=== PATIENT | female | born 1955 | race Caucasian/White ===

== ENCOUNTER 2020-11-28 17:07 | Emergency (ER) | payer MEDICARE, MEDICAID, SELFPAY ==
--- NOTE | ~2020-11-28 | US_ITS ---
EXAMINATION: US VENOUS ULTRASOUND WITH DOPPLER LOWER EXTREMITY, LEFT CLINICAL INFORMATION: Leg swelling. History of DVT. COMPARISON: None TECHNIQUE: Ultrasound of the deep veins is performed from the hip to the calf with compression sonography and color and pulse Doppler assessment. Spectral analysis with color-flow imaging is performed. FINDINGS: There is normal venous compression and respiratory variation and augmented flow. The visualized common femoral vein, superficial femoral vein, profunda femoral vein, popliteal vein, and the trifurcation region shows no evidence of deep venous thrombosis. There is no significant popliteal fossa cyst. If the patient's symptoms persist, followup ultrasound in 5 days 7 days might be of value to exclude proximal propagation from a non-visualized calf vein. US/US venous duplex LE IMPRESSION: No DVT demonstrated in the left lower extremity.
[2020-11-28 17:10] VITALS: BP 175/69; PULSE 91; RESP 18; TEMP 36.7; O2SAT 97; BMI 29.1
--- NOTE | 2020-11-28 18:14 | ED.EXTPRO ---
HPI - Extremity Problem General Chief complaint: Extremity Problem Stated complaint: R/O Dvt Time Seen by Provider: 11/28/20 18:14 Source: patient Mode of arrival: ambulatory Limitations: no limitations History of Present Illness HPI Narrative: 62-year-old female who reports history of DVT she is currently on Eliquis she reports she sprained her left ankle 4 days ago she subsequently got evaluated at [facility] where she had an x-ray was told this was unremarkable. States her ankle is hurting a little bit and got better afterwards noticed some slight swelling that has not worsened or improved. States she is concerned she may have a DVT. States swelling just above the ankle. States she has had similar symptoms in the past with DVT. Again she is currently on Eliquis and states she is compliant. Otherwise denies any chest pain, shortness of breath. No headache. No other injury. Ambulatory steady gait. MD Complaint: extremity swelling Pain Consistency: constant Location: left Quality: aching Radiation: none Relieving factors: nothing Exacerbating factors: nothing Associated symptoms: denies other symptoms Related Data Allergies Allergy/AdvReac Type Severity Reaction Status Date / Time No Known Allergies Allergy Unverified 02/25/20 17:02 Review of Systems Review of Systems: Constitutional: No Weight loss, No Fever, No Chills, No Night Sweats, No Fatigue, No Malaise ENT/Mouth: No Hearing loss, No Ear Pain, No Nasal Congestion, No Sinus Pain, No Hoarseness, No sore throat, No Rhinorrhea, No Swallowing Difficulty Eyes: No Eye Pain, No Swelling, No Redness, No Foreign Body, No Discharge, No Vision Changes Cardiovascular: No Chest Pain, No SOB, No Dyspnea on Exertion, No Orthopnea, No Edema, No Palpitations Respiratory: No Cough, No Sputum, No Wheezing, No Smoke Exposure, No Dyspnea Gastrointestinal: No Nausea, No Vomiting, No Diarrhea, No Constipation, No abdominal Pain, No Hematochezia, No Melena Genitourinary: no irregular bleeding, No Dysuria, No Urinary Frequency, No Hematuria, No Urinary Incontinence, No Urgency, No Flank Pain, No Urinary Flow Changes, No Hesitancy Musculoskeletal: No joint pain, No Myalgias, left lower leg swelling just below the amaro and to ankle as noted per HPI. Skin: No Skin Lesions, No rash Neuro: No Weakness, No Numbness, No Paresthesias, No Loss of Consciousness, No Dizziness, No Headache Psych: No Social Issues Heme/Lymph: No Bruising, No Bleeding,No Lymphadenopathy Endocrine: No Polyuria, No Polydipsia, No Temperature Intolerance Yes all other systems are reviewed and are negative [facility] Past Medical History Medical History DVT (deep venous thrombosis) Surgical History History of appendectomy Social History Social History Patient Tobacco Use Status: Never used Tobacco Use of substances other than those prescribed or required for medical reasons: No Advance Directives: No Advance Directives Information Provided: No Physical Exam Vital Signs: Vital Signs: Last Vital Signs Temp 98.1 F 11/28/20 17:10 Pulse 88 11/28/20 19:10 Resp 16 11/28/20 19:10 BP 144/92 H 11/28/20 19:10 Pulse Ox 96 11/28/20 19:10 Body Mass Index 29.1 Reviewed Const: General: cooperative and healthy appearing; No acute distress or intoxicated appearing Nutritional Appearance: average body habitus Orientation/consciousness: patient oriented x3 HENMT: Head: Yes normal to inspection Ears: hearing grossly normal bilaterally Eyes: General: appearance normal, both eyes and all related structures Visual Hardy: normal visual hardy by confrontation Neck: Neck: Yes normal visual inspection, No positive Brudzinski's sign, No positive Kernig's sign and No tender Thyroid: Thyroid normal Chest: Chest palpation & inspection: normal inspection of the chest Resp: Effort & Inspection: normal respiratory effort Auscultation: clear to auscultation bilaterally Cardio: Jugular venous distension: no JVD Rhythm: regular rhythm Heart sounds: S1 normal heart sound present and S2 normal heart sound present Skin: General skin exam: no rashes or lesions noted Neuro: General: patient oriented x3 Extrem: General: Yes normal to inspection Left lower extremity: full ROM, normal capillary refill and edema (Very minimal just below the amaro to the ankle.) Details: non-pitting Course Course Course Narrative: Strain type injury resulting very minimal swelling. Concern for DVT history of this. Ultrasound does not show any evidence of DVT. She is on Eliquis. Reassurance provided, neurovascular intact. Pulses within normal limits. Educated on plan of care and agreeable. Stable for discharge. MDM - Extremity (Nontraumatic) Imaging Data Left lower extremity ultrasound: Radiologist's impression: [address] [id number] ReportSigned Patient: Jcarlos Muro#: [id number]: [birth year]Acct:[id number]/Sex: 65 / FADM Date: 11/28/20Loc: HO.EDAttending Dr: Ordering Physician: Jonathan Mckeon NP Date of Service: 11/28/20 Procedure(s): US venous duplex LE LT Accession Number(s): [id number] cc: Jonathan Mckeon DROP FORGE HAND~ EXAMINATION: US VENOUS ULTRASOUND WITH DOPPLER LOWER EXTREMITY, LEFT CLINICAL INFORMATION: Leg swelling. History of DVT. COMPARISON: None TECHNIQUE: Ultrasound of the deep veins is performed from the hip to the calf with compression sonography and color and pulse Doppler assessment. Spectral analysis with color-flow imaging is performed. FINDINGS: There is normal venous compression and respiratory variation and augmented flow. The visualized common femoral vein, superficial femoral vein, profunda femoral vein, popliteal vein, and the trifurcation region shows no evidence of deep venous thrombosis. There is no significant popliteal fossa cyst. If the patient's symptoms persist, followup ultrasound in 5 days 7 days might be of value to exclude proximal propagation from a non-visualized calf vein. US/US venous duplex LE LT IMPRESSION: No DVT demonstrated in the left lower extremity. Dictated By:JOSE COLORADO MDSigned By:<Electronically signed by JOSE COLORADO MD in OV>11/28/201930 DD/ 14TD/TT: Product Applications Scientist: EF Discharge Plan Discharge Clinical Impression: Left ankle sprain Patient Disposition: Home, Self-Care Instructions: Ankle Sprain (ED) Additional Instructions: Your exam and findings are consistent with the muscle/ligament taken strain which can result in very slight swelling which you have. You had an x-ray done a ready this was negative for any broken bones. You also had ultrasound today that did not show any evidence of blood clot. Please rest, ice, elevate and compress. Return if any concerns or worsening symptoms Follow-up with your primary care as planned Take medication as prescribed Thank you Referrals: Physician,Unknown [Primary Care Provider] - 1 week
[2020-11-28 19:10] VITALS: BP 144/92; PULSE 88; RESP 16; O2SAT 96
--- NOTE | 2020-11-28 19:46 | PC.NURSE ---
YOSI WRAP APPLIED TO L ANKLE.
== END 2020-11-28 19:55 | disposition home or self-care (01) ==
PROVIDERS: Emergency Provider Emergency Medicine
DX: S93.402A Sprain of unspecified ligament of left ankle, initial encounter (principal); M79.89 Other specified soft tissue disorders; Z86.718 Personal history of other venous thrombosis and embolism; Z79.01 Long term (current) use of anticoagulants; X58.XXXA Exposure to other specified factors, initial encounter; Y93.9 Activity, unspecified; Y92.9 Unspecified place or not applicable; Y99.9 Unspecified external cause status
CPT/HCPCS: 93971; 99284